=== PATIENT | male | born 1980 | race Caucasian/White ===

== ENCOUNTER 2016-07-27 19:16 | Emergency (ER) | payer BC | END 2016-07-27 21:13 | disposition home or self-care (01) | LOC: ER 19:16 | DX: J02.9 Acute pharyngitis, unspecified (principal); B37.9 Candidiasis, unspecified; I10 Essential (primary) hypertension; E66.9 Obesity, unspecified; Z79.899 Other long term (current) drug therapy; Z87.442 Personal history of urinary calculi | CPT/HCPCS: 36415; 87651; 96374; 96375; J2060; Q9967 ==